=== PATIENT | male | born 1945 | race Caucasian/White ===

== ENCOUNTER 2023-06-05 14:50 | Outpatient (CLI) | payer MEDICARE, OTHER ==
[2023-06-05 20:02] LABS: CALCIUM 9.7 mg/dL (8.5-10.3); POTASSIUM 3.4 mmol/L (3.5-4.5)
== END 2023-06-05 14:51 | disposition home or self-care (01) ==
LOC: LAB.S 14:50
PROVIDERS: ATTEND Internal Medicine
DX: E87.6 Hypokalemia (principal)
CPT/HCPCS: 36415; 80048

== ENCOUNTER 2023-07-12 08:00 | Outpatient (CLI) | payer MEDICARE, OTHER | END 2023-07-12 23:59 | disposition home or self-care (01) | LOC: LAB.S 08:00 | PROVIDERS: ATTEND Registered Nurse | DX: U07.1 COVID-19 (principal) ==